=== PATIENT | male | born 1945 | race Caucasian/White ===

== ENCOUNTER 2019-10-14 08:14 | Emergency (ER) | payer OTHER ==
[~2019-10-14] VITALS: Ht 177.8 cm; Wt 81.7 kg
[2019-10-14] MEDS ORDERED: VALSARTAN-HCTZ1 EAC1 PO (08:24)
[2019-10-14] MEDS ORDERED: GLUCOPHAGE XR750 MG PO (08:24)
[2019-10-14 08:45] LABS: URINE BILIRUBIN NEGATIVE (Negative); URINE BLOOD NEGATIVE (Negative); URINE CLARITY CLEAR; URINE COLOR YELLOW; URINE GLUCOSE-RANDOM* 2+ (Negative); URINE KETONES NEGATIVE (Negative); URINE LEUKOCYTES-REFLEX NEGATIVE (Negative); URINE NITRITE-REFLEX NEGATIVE (Negative); URINE PROTEIN (DIPSTICK) NEGATIVE (Negative); URINE SPECIFIC GRAVITY <= 1.005 (1.005-1.035); URINE UROBILINOGEN 0.2 E.U./dl (0.2-1.0)
[2019-10-14 08:54] LABS: ANION GAP 10 mmol/L (7-16); BUN 13 mg/dL (7-18); CALCIUM 9.4 mg/dL (8.5-10.1); CHLORIDE 104 mmol/L (98-107); CO2 24 mmol/L (21-32); CREATININE 1.1 mg/dL (0.7-1.3); GLUCOSE 246 mg/dL (74-106); POTASSIUM 4.1 mmol/L (3.5-5.1); SODIUM 138 mmol/L (136-145)
[2019-10-14 09:04] LABS: ALBUMIN 3.8 g/dL (3.4-5.0); DIRECT BILIRUBIN 0.4 mg/dL (<0.1-0.2); SGOT 58 U/L (15-37); SGPT 73 U/L (30-65); TOTAL BILIRUBIN 1.6 mg/dL (0.2-1.0); TOTAL PROTEIN 7.4 g/dL (6.4-8.2); TROPONIN-I <0.06 ng/mL (<0.06)
[2019-10-14] MEDS ORDERED: XARELTO20 MG PO (12:06)
[2019-10-14] MEDS ORDERED: TENORMIN25 M1 PO (12:06)
[2019-10-14 12:19] VITALS: BP 101/77
[2019-10-14 13:11] LABS: ABSOLUTE NEUTROPHILS 7.3 thou/uL (1.4-8.2); BASOPHILS 0.5 % (0.0-2.0); EOSINOPHILS 0.5 % (0.0-3.0); HEMATOCRIT 49.2 % (42.0-52.0); HEMOGLOBIN 16.8 gm/dL (14.0-18.0); LYMPHOCYTES 13.7 % (24.0-44.0); MCHC 34.1 g/dL (28.0-37.0); MCV 96.7 fL (80.0-100.0); MONOCYTES 6.8 % (1.0-8.0); PLATELET COUNT 194 thou/uL (150-400); POLYS 78.5 % (36.0-66.0); RBC 5.08 mil/uL (4.50-6.00); RDW 13.9 % (10.5-14.5); WBC 9.3 thou/uL (4.0-11.0)
--- NOTE | 2019-10-14 13:50 | EKG ---
[facility] [place] [address] ELECTROCARDIOGRAM REPORT Name: TASH HAYNES Room #: DEP [facility]#: [id number] Admission: 10/14/19 Attend Phys: Discharge: 10/14/19 Date of : 41 Report #: [id number] THIS REPORT FOR: cc: Farhat Richard James A. DO Couchonnal, Luis F. 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
[2019-10-15] MEDS ORDERED: FISH OIL 1,0001 EAC9 PO (16:29)
[2019-10-15] MEDS ORDERED: ASA81BEC PO (16:29)
== END 2019-10-14 12:19 | disposition home or self-care (01) ==
LOC: ER 08:14
PROVIDERS: Emergency Medicine
DX: I48.0 Paroxysmal atrial fibrillation (principal); Z79.899 Other long term (current) drug therapy

== ENCOUNTER 2019-10-15 15:20 | Inpatient (IN) | payer OTHER ==
[~2019-10-15] VITALS: Ht 177.8 cm; Wt 83.9 kg
[~2019-10-15 15:20] MED LIST changes: -ASA81BEC PO; -FISH OIL 1,0001 EAC9 PO
[2019-10-15 15:41] VITALS: BP 115/93
[2019-10-15 15:56] LABS: ABSOLUTE NEUTROPHILS 9.1 thou/uL (1.4-8.2); BASOPHILS 0.4 % (0.0-2.0); EOSINOPHILS 0.2 % (0.0-3.0); HEMATOCRIT 52.9 % (42.0-52.0); HEMOGLOBIN 17.9 gm/dL (14.0-18.0); LYMPHOCYTES 18.2 % (24.0-44.0); MCH 32.8 pg (26.0-34.0); MCHC 33.8 g/dL (28.0-37.0); MCV 96.9 fL (80.0-100.0); MONOCYTES 8.1 % (1.0-8.0); PLATELET COUNT 216 thou/uL (150-400); POLYS 73.1 % (36.0-66.0); RBC 5.46 mil/uL (4.50-6.00); RDW 13.6 % (10.5-14.5); WBC 12.4 thou/uL (4.0-11.0)
[2019-10-15 16:03] LABS: ANION GAP 9 mmol/L (7-16); BUN 22 mg/dL (7-18); CALCIUM 9.9 mg/dL (8.5-10.1); CHLORIDE 102 mmol/L (98-107); CO2 26 mmol/L (21-32); CREATININE 1.2 mg/dL (0.7-1.3); GLUCOSE 163 mg/dL (74-106); POTASSIUM 5.3 mmol/L (3.5-5.1); SODIUM 137 mmol/L (136-145)
[2019-10-15 16:09] LABS: APTT 25.9 Seconds (24.5-32.8); INR 1.2; PROTIME 12.1 Seconds (9.3-11.4)
[2019-10-15 16:14] LABS: ALBUMIN 4.2 g/dL (3.4-5.0); MAGNESIUM 2.3 mg/dL (1.8-2.4); SGOT 82 U/L (15-37); SGPT 112 U/L (30-65); TOTAL BILIRUBIN 2.1 mg/dL (0.2-1.0); TOTAL PROTEIN 8.1 g/dL (6.4-8.2); TROPONIN-I <0.06 ng/mL (<0.06)
[2019-10-15] MEDS ORDERED: FISH OIL 1,0001 EAC9 PO (16:29)
[2019-10-15] MEDS ORDERED: ASA81BEC PO (16:29)
[2019-10-15 17:06] VITALS: BP 115/93
--- NOTE | 2019-10-15 17:22 | NUR ---
Report attempted to CCU. Placed on hold for multiple minutes without any picking up. Will call back.
[2019-10-15 17:44] VITALS: BP 124/86
[2019-10-15 18:05] LABS: CHOLESTEROL 135 mg/dL (<200); HDL CHOLESTEROL 37 mg/dL (>40); LDL CHOLESTEROL 81 mg/dL (<100); TC:HDL 3.6 Ratio (Not establshd); TRIGLYCERIDE 89 mg/dL (<150); VLDL 18 mg/dL (<40)
[2019-10-15 19:34] VITALS: BP 101/76
[2019-10-15 23:00] VITALS: BP 99/65
[2019-10-16 00:02] LABS: AMP/METHAMP Negative (Negative); BARBITURATES Negative (Negative); BENZODIAZEPINES Negative (Negative); COCAINE Negative (Negative); METHADONE Negative (Negative); OPIATES Negative (Negative); PCP Negative (Negative)
--- NOTE | 2019-10-16 00:14 | NUR ---
1900 ARRIVED FROM ER PER WHEELCHAIR. CHANGED TO R/O BRIANNE. YAM CURER NOTIFIED. INFORMED PATIENT. DOOR CLOSED AND GETTING ISOLATION EQUIPMENT. 2029 REPORT GIVEN TO TYRELL NAVARRO ON 3W. AWAITING ROOM TO BE READY. 2249 TRANSFERED TO 349 PER BED. TELEMETRY SHOWS AFIB, PVC'S 90'S. DOES INCREASE TO 120'S WHEN UP IN ROOM.
[2019-10-16 02:06] LABS: GLYCOHEMOGLOBIN (HGB A1C) 7.2 % (4.8-5.6)
[2019-10-16 04:55] VITALS: BP 114/84
[2019-10-16 06:20] LABS: HEMATOCRIT 47.9 % (42.0-52.0); HEMOGLOBIN 16.6 gm/dL (14.0-18.0); MCHC 34.6 g/dL (28.0-37.0); MCV 98.2 fL (80.0-100.0); RBC 4.88 mil/uL (4.50-6.00); RDW 14.3 % (10.5-14.5); WBC 11.1 thou/uL (4.0-11.0)
[2019-10-16 06:48] LABS: CREATININE 1.4 mg/dL (0.7-1.3)
[2019-10-16 06:50] LABS: POTASSIUM 3.7 mmol/L (3.5-5.1)
[2019-10-16 07:44] VITALS: BP 101/67
--- NOTE | 2019-10-16 08:06 | NUR ---
COVID SWAB SENT LAST NIGHT, RESULTS PENDING. PT HAS DENIED ANY CHILLS OR SWEATS. DOES REPORT HE HAS FELT SOME FLUTTERING SENSATION TO HIS HEART. DID HAVE ONE TACHYCARDIC WIDE COMPLEX BURST OVERNIGHT AT APPROX 0351 HRS, APPROX 20 BEATS THAT SPONTANEOUSLY RETURNED TO AFIB.
--- NOTE | 2019-10-16 09:17 | EKG ---
[facility] [place] [address] ELECTROCARDIOGRAM REPORT Name: TASH HAYNES Room #: 349-I ADM IN M.R.#: [id number] Admission: 10/15/19 Attend Phys: Coleen Davenport MD Discharge: Date of : 41 Report #: [id number] THIS REPORT FOR: cc: Farhat Richard James A. DO Lundgren, Craig H. 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: PORFIRIO : 1945 Requested By: Jeramie Gustafson Order Number: [id number] MD: Rene Heredia Measurements Intervals [place] Rate: 90 P: VT: QRS: 6 QRSD: 96 T: 132 QT: 399 QTc: 489 Interpretive Statements Atrial fibrillation Ventricular premature complex Anterior infarct, old Nonspecific T abnormalities, lateral leads Compared to ECG 10/14/2019 08:24:57 No significant change was found Electronically Signed On 10-16-2019 9:17:11 CDT by Rene Heredia [email or web address] <ELECTRONICALLY SIGNED> By: Rene Heredia MD, [facility] 10/16/19 0917 1529 1529 Rene Heredia MD, FAC /EPI
[2019-10-16 11:45] VITALS: BP 110/59
--- NOTE | 2019-10-16 11:59 | 2DMMODE ---
[facility] [address] [place] [address] 2 D/M-MODE ECHOCARDIOGRAM Name: HAYNESTASH C Room #: 349-I ADM IN ..#: [id number] Admission: 10/15/19 Attend Phys: Coleen Davenport MD Discharge: Date of : 43 Report #: [id number] THIS REPORT FOR: cc: Farhat Richard James A. DO Lammoglia, Francisco J. MD ~ APPROVED REPORT Study performed: 10/16/2019 11:22:01 EXAM: Comprehensive 2D, Doppler, and color-flow Echocardiogram Patient Location: Bedside Room #: 349 Status: routine BSA: 2.04 HR: 108 bpm BP: 101/67 mmHg Rhythm: Atrial Fibrillation Other Information Study Quality: Good/Patient in COVID isolation. Indications Congestive Heart Failure Atrial Fibrillation Dyspnea Chest Pain 2D Dimensions IVSd: 10.06 (7-11mm) LVOT Diam: 21.44 (18-24mm) LVDd: 56.61 mm PWd: 8.62 (7-11mm) Ascending Ao: 36.18 (22-36mm) LVDs: 45.76 (25-40mm) Aortic Root: 30.72 mm Aortic Valve AoV Peak Terry.: 2.17 m/s AO Peak Gr.: 19.41 mmHg LVOT Max P.72 mmHg AO Mean Gr.: 13.28 mmHg AO V2 Mean: 1.75 m/s LVOT Max V: 0.65 m/s AO V2 VTI: 40.43 cm ALYSIA Vmax: 1.08 cm2 [facility] [address] [place] [address] 2 D/M-MODE ECHOCARDIOGRAM Name: TASH HAYNES Juanita Room #: 349-I [facility] IN [facility]#: [id number] Admission: 10/15/19 Attend Phys: Coleen Davenport MD Discharge: Date of : 43 Report #: [id number] Tricuspid Valve TR Peak Terry.: 2.84 m/s RAP Estimate: 15.00 mmHg TR Peak Gr.: 32.43 mmHg PA Pressure: 47.00 mmHg Left Ventricle The left ventricle is normal size. There is normal left ventricular wall thickness. Left ventricular systolic function is moderate to severely decreased. LVEF is 30%. This study is not technically sufficient to allow evaluation of the LV diastolic function due to atrial fibrillation. Right Ventricle The right ventricle is normal size. Right ventricle is mild to moderately hypokinetic. Atria Left atrium is dilated. Right atrium is dilated. Aortic Valve Aortic valve is heavily calcified. Trace aortic regurgitation. Moderate to severe aortic stenosis. ALYSIA by continuity equation is 1.1cm2. Mitral Valve Mitral valve leaflets are thickened. Moderate mitral annular calcification. Severe mitral regurgitation. Tricuspid Valve The tricuspid valve is normal in structure. Mild to moderate tricuspid regurgitation. Estimated PAP is 40-45mmHg. Pulmonic Valve Pulmonic valve is not well visualized. Trace pulmonic regurgitation. Great Vessels The aortic root is normal in size. The ascending aorta is normal in size. IVC is dilated and collapses <50% with inspiration. Pericardium There is no pericardial effusion. Left pleural effusion noted. <Conclusion> [facility] [address] [place] [address] 2 D/M-MODE ECHOCARDIOGRAM Name: TASH HAYNES Juanita Room #: 349-I [facility] IN [facility]#: [id number] Admission: 10/15/19 Attend Phys: Coleen Davenport MD Discharge: Date of : 41 Report #: [id number] The left ventricle is normal size. LVEF is 30%. Left atrium is dilated. Right atrium is dilated. Aortic valve is heavily calcified. Trace aortic regurgitation. Moderate to severe aortic stenosis. ALYSIA by continuity equation is 1.1cm2. Mitral valve leaflets are thickened. Moderate mitral annular calcification. Severe mitral regurgitation. The tricuspid valve is normal in structure. Mild to moderate tricuspid regurgitation. Estimated PAP is 40-45mmHg. Pulmonic valve is not well visualized. Trace pulmonic regurgitation. There is no pericardial effusion. Left pleural effusion noted. <ELECTRONICALLY SIGNED> By: Srinath Guerrero MD 10/16/19 1159 1159 1159 Srinath Guerrero MD /INF
--- NOTE | 2019-10-16 12:41 | NUR ---
INITIAL ASSESSMENT: SW reviewed chart and spoke with nursing. Pt was admitted from home due to new onset Afib with RVT. Pt with hx of CHF/HTN. Pt placed in Enhanced Isolation to r/o COVID-19. Pt's test is negative. Pt to transfer to CCU when a bed is available. SW spoke with pt via phone. Introduced role of SW. Pt is alert/orientated x 4. Pt states he lives alone. Prior to admission, pt was independent with ADLs. Does not use any DME. No hx of HH services or post-acute placement. Pt's PCP is Dr. Farhat Richard. Plan is for pt to discharge home when medically stable. No discharge needs identified at this time. SW is available to assist should needs arise.
--- NOTE | 2019-10-16 15:36 | NUR ---
PT TRANSFERRED TO ROOM 206. TELE APPLIED, VSS.
[2019-10-16 15:45] VITALS: BP 105/75
--- NOTE | 2019-10-16 17:35 | NUR ---
ASSUMED CARE THIS AM. PATIENT AWAKE AND ALERT. SHORTNESS OF BREATH NOTED AT REST AND INCREASED SHORTNESS OF BREATH WITH ANY ACTIVITY. DISCUSSED PLAN OF CARE WITH PATIENT. COVID TEST CAME BACK NEGATIVE AND ORDERS RECEIVED TO DISCONTINUE ENHANCED PRECAUTIONS. HEART RATE STABLE IN THE 80-90'S. CONTINUED AFIB ON THE MONITOR. LARGE U/O TODAY. UP AD AMANDA IN ROOM. PATIENT WAS TRANSFERRED TO ROOM 206.
--- NOTE | 2019-10-16 18:27 | NUR ---
PT UP AD AMANDA IN ROOM. DENIES ANY NEEDS AT THIS TIME.
[2019-10-16 19:10] LABS: URINE BILIRUBIN NEGATIVE (Negative); URINE BLOOD NEGATIVE (Negative); URINE CLARITY CLEAR; URINE COLOR YELLOW; URINE GLUCOSE-RANDOM* NEGATIVE (Negative); URINE KETONES 1+ (Negative); URINE LEUKOCYTES-REFLEX NEGATIVE (Negative); URINE NITRITE-REFLEX NEGATIVE (Negative); URINE PROTEIN (DIPSTICK) TRACE (Negative); URINE SPECIFIC GRAVITY 1.025 (1.005-1.035); URINE UROBILINOGEN 0.2 E.U./dl (0.2-1.0)
[2019-10-16 19:50] VITALS: BP 84/58
[2019-10-17] VITALS: BP 94/65
[2019-10-17 03:30] VITALS: BP 99/73
--- NOTE | 2019-10-17 04:54 | NUR ---
Assumed pt care at 1900. At the beginning of the shift, pt is alert and oriented. No sign of distress noted in pt. Denies any pain but does get short of breath upon exertion. Pt is ambulatory. Assessment completed and documented. Scheduled meds administered to pt. Pt complains about not been able to sleep and uncomfortable and nauseated at midnight. Ambien and zofran administered. Pt went to sleep. Duriing the night, pt had two episodes of confusion and hallucination to where took out his IV and heart monitor leads and pt didnt know where he was. He was disoriented to place. Pt is re-oriented. Fluids administered due to hypotension, pt is placed on CPOX due to increased shortness of breath with activity. Pt continue to have decreased in O2 saturation during the night. Pt is placed on 2L NC to help with oxygen saturation level. Continue to monitor pt through the night. No further needs at this time.
[2019-10-17 06:39] LABS: BASOPHILS 0.7 % (0.0-2.0); EOSINOPHILS 1.3 % (0.0-3.0); HEMATOCRIT 44.8 % (42.0-52.0); HEMOGLOBIN 15.3 gm/dL (14.0-18.0); LYMPHOCYTES 21.8 % (24.0-44.0); MCH 33.1 pg (26.0-34.0); MCHC 34.1 g/dL (28.0-37.0); MCV 97.1 fL (80.0-100.0); MONOCYTES 7.8 % (1.0-8.0); PLATELET COUNT 177 thou/uL (150-400); POLYS 68.4 % (36.0-66.0); RBC 4.62 mil/uL (4.50-6.00); RDW 14.2 % (10.5-14.5); WBC 8.8 thou/uL (4.0-11.0)
[2019-10-17 06:54] LABS: CALCIUM 8.9 mg/dL (8.5-10.1); CREATININE 1.2 mg/dL (0.7-1.3); POTASSIUM 3.9 mmol/L (3.5-5.1)
[2019-10-17 08:00] VITALS: BP 100/78
[2019-10-17 11:30] VITALS: BP 81/61
[2019-10-17 15:35] VITALS: BP 88/65
--- NOTE | 2019-10-17 17:25 | NUR ---
ASSESSMENT CHARTED. PT ALERT AND ORIENTED. HAD LOW BP THIS SHIFT. SCHEDULED COREG HELD FOR LOW BP. DR VELA AWARE. ORDERS GIVEN TO PUT PT ON STRICT BED REST. AFIB ON THE MONITOR. WILL CONTINUE TO MONITOR.
[2019-10-17 19:20] VITALS: BP 93/71
[2019-10-18 03:55] VITALS: BP 92/66
--- NOTE | 2019-10-18 05:06 | NUR ---
Assumed pt care at 1900. Pt is alert and oriented. No sign of distress noted in pt. Pt is stable through the night. Pt is ambulatory. Assesment completed and documented. Scheduled meds administered to pt. Pt is stable through the night. No acute event. Continue to monitor. No further needs at this time.
[2019-10-18 08:10] VITALS: BP 91/74
[2019-10-18 12:00] VITALS: BP 82/57
[2019-10-18 16:05] VITALS: BP 96/69
--- NOTE | 2019-10-18 17:39 | NUR ---
ASSUMED CARE PT SHIFT CHANGE. ASSESSMENT CHARTED. MEDS GIVEN PER MAY. PT ALERT AND ORIENTED. VSS. XRAY DONE TODAY-REFER TO RESULTS. PT WEANED OFF O2. SATS WNL. DENIES SOB. UP TO CHAIR TOLERATING WELL. DAUGHTER IN ROOM THROUGHOUT DAY. POC FOR PT TO HAVE CARDILOGY WORK UP. PT CURRENTLY EATING DINNER WITH DAUGHTER IN ROOM. DENIES NEEDS. WILL CONT TO MONITOR. WILL PASS ON REPORT TO TONI NAVARRO.
[2019-10-18 20:00] VITALS: BP 70/44
[2019-10-19] VITALS (15 sets, daily range): BP systolic 97–116; BP diastolic 63–89
--- NOTE | 2019-10-19 02:08 | NUR ---
PT IS PLEASANT. ALERT AND ORIENTED X4. LUNGS ARE CLEAR ON ROOM AIR. NPO SINCE MIDNIGHT. FOR CARDIOLOGY TO EVALUATED AND MAKE A PLAN OF CARE FOR PT AT THIS TIME. VOIDS PER URINAL AT BEDSIDE. PT RESTING THIS EVENING. COVID SCREEN NEGATIVE AT THIS TIME. WILL CONTINUE ONGOING NURSING CARE PLAN AND PT NEEDS AT THIS TIME. DENIES ANY PAIN ISSUES. CALL LIGHT WITHIN REACH.
[2019-10-19 08:19] LABS: CALCIUM 8.8 mg/dL (8.5-10.1); MAGNESIUM 2.3 mg/dL (1.8-2.4)
[2019-10-19 12:06] LABS: HEMOGLOBIN 15.1 gm/dL (14.0-18.0); MCHC 34.3 g/dL (28.0-37.0); MCV 96.1 fL (80.0-100.0); RBC 4.58 mil/uL (4.50-6.00)
[2019-10-19 12:16] LABS: INR 1.1; PROTIME 11.4 Seconds (9.3-11.4)
[2019-10-19 12:22] LABS: POTASSIUM 4.1 mmol/L (3.5-5.1)
--- NOTE | 2019-10-19 14:28 | EKG ---
[facility] [place] [address] ELECTROCARDIOGRAM REPORT Name: TASH HAYNES Room #: 206-P ADM IN M.R.#: [id number] Admission: 10/15/19 Attend Phys: Coleen Davenport MD Discharge: Date of : 41 Report #: [id number] THIS REPORT FOR: cc: Farhat Richard James A. DO Couchonnal, Luis F. MD ~ THIS REPORT FOR: //name// [facility] Test Date: 2019-10-19 Test Time: 12:01:11 Pat Name: TASH HAYNES Department: Room: 206 P Gender: M Prep Person: GAMALIEL : 1945 Requested By: Ani Raza Order Number: [id number] MD: Aristides Cho Measurements Intervals Lane Rate: 109 P: GA: QRS: 10 QRSD: 93 T: QT: 350 QTc: 472 Interpretive Statements Atrial fibrillation Paired ventricular premature complexes Low voltage, extremity leads Nonspecific T abnormalities, lateral leads Baseline wander in lead(s) V1 Electronically Signed On 10-19-2019 14:28:34 CDT by Aristides Cho [email or web address] <ELECTRONICALLY SIGNED> By: Aristides Cho MD 10/19/19 1428 1201 1201 Aristides Cho MD /EPI
[2019-10-20] VITALS (8 sets, daily range): BP systolic 94–151; BP diastolic 62–98
--- NOTE | 2019-10-20 04:57 | NUR ---
ASSUMED PT CARE AT 1900, PT IS AWAKE, ALERT AND SEEMED CONFUSED, PT WAS FOUND SLEEPING IN BED WITH HEAD FACING THE FOOT OF THE BED, PT REFUSED ASSESSMENT; PT AFIB AND NOTED SUSTAINED TACHYCARDIA UPTO 160, CARDIALOGY NOTIFIED, NEW ORDERS RECEIVED, CARDIZEM STARTED, PT IS BEEN RUNNING NON SINUS TO SINUS VTACH ON THE MONITOR, NEUROLOGY CONSULTED, DENIES PAIN OR SOB, PT BACK TO HIS BASELINE AND DOING OK, SLEPT ON THE CHAIR NO DISTRESS NOTED AT THIS TIME, WILL CONTINUE TO MONITOR, WILL PASS ON REPORT
[2019-10-20 05:44] LABS: ABSOLUTE NEUTROPHILS 5.4 thou/uL (1.4-8.2); BASOPHILS 0.3 % (0.0-2.0); EOSINOPHILS 1.2 % (0.0-3.0); HEMATOCRIT 47.7 % (42.0-52.0); HEMOGLOBIN 16.1 gm/dL (14.0-18.0); LYMPHOCYTES 19.9 % (24.0-44.0); MCH 32.6 pg (26.0-34.0); MCHC 33.7 g/dL (28.0-37.0); MCV 96.8 fL (80.0-100.0); MONOCYTES 8.2 % (1.0-8.0); PLATELET COUNT 178 thou/uL (150-400); POLYS 70.4 % (36.0-66.0); RBC 4.93 mil/uL (4.50-6.00); RDW 14.4 % (10.5-14.5); WBC 7.6 thou/uL (4.0-11.0)
[2019-10-20 06:04] LABS: CALCIUM 9.3 mg/dL (8.5-10.1); CREATININE 1.1 mg/dL (0.7-1.3); POTASSIUM 3.9 mmol/L (3.5-5.1)
[2019-10-20 06:11] LABS: MAGNESIUM 2.3 mg/dL (1.8-2.4); PHOSPHORUS 3.2 mg/dL (2.5-4.9)
--- NOTE | 2019-10-20 17:54 | NUR ---
ASSESSMENT CHARTED. PT ALERT AND ORIENTED. AFIB ON THE MONITOR. SEEN BY STEEL ERECTING PUSHER NEW ORDERS NOTED. UP IN THE CHAIR MOST OF THE SHIFT. DENIED HAVING PAIN OR DISCOMFORT. WILL CONTINUE TO MONITOR.
[2019-10-21] VITALS (7 sets, daily range): BP systolic 95–136; BP diastolic 64–92
--- NOTE | 2019-10-21 05:09 | NUR ---
SLEPT MOST OF SHIFT UP IN CHAIR. DENIES PRESENT COMPLAINTS OF SHORTNESS OF AIR. PROGRESSING TOWARDS DISCHARGE GOALS SLOWLY. WORKING ON GOALS AND PLAN OF CARE FOR NOC. UP AD AMANDA IN ROOM WITH STEADY GAIT. CONTINUE TO ASSES.
[2019-10-21 11:27] LABS: CALCIUM 8.2 mg/dL (8.5-10.1); CREATININE 1.1 mg/dL (0.7-1.3); MAGNESIUM 2.1 mg/dL (1.8-2.4); POTASSIUM 4.5 mmol/L (3.5-5.1)
--- NOTE | 2019-10-21 15:45 | NUR ---
DISCHARGING TO HOME. TELE AND SALINE LOCK DISCONTINUED. HIS TACHYCARDIA HAS PERSISTED WITH ANY ACTIVITY WHILE ON DIGOXIN.
--- NOTE | 2019-10-21 19:57 | HC ---
[facility] [place] [address] CONSULTATION Name: TASH HAYNES Room #: 206-P ADM IN M.R.#: [id number] Admission: 10/15/19 Attend Phys: Coleen Davenport MD Discharge: Date of : 43 Report #: [id number] THIS REPORT FOR: cc: Farhat Richard,Gerald Paniagua MD ~ CC: Farhat Davenport DATE OF SERVICE: 10/20/2019 HISTORY OF PRESENT ILLNESS: This is a 74-year-old male patient for whom a stat consult was requested by the nurses for altered mental status. I came and saw the patient. There is a difference between the version of the nurse looking after that the patient and the patient himself. He gives a history that he did not like the bed and he just got angry and took it on the nurse. Nurse initially thought he was confused, but then he also thought that he was probably angry, but I do not get a good history because of this conflicting version. Anyway, he returned back to the baseline this morning. He does have multiple risk factors for altered mental status, which would be summarized below. REVIEW OF SYSTEMS: Indicate that he has atrial fibrillation. He underwent a cardiac catheterization. He has a congestive heart failure. He denies any prior history of strokes. He was on anticoagulation, not sure how his compliance has been. PAST MEDICAL HISTORY: Negative for any stroke. FAMILY HISTORY: Noncontributory. SOCIAL HISTORY: He does drink alcohol. He does have a history of smoking. PHYSICAL EXAMINATION: He is alert. He is responsive to me. He is able to follow simple command. He knows what hospital he is in. He knew the president. He got the date right. Cranial nerve examination 2-12 looks unremarkable. Neuromuscular examination is symmetrical. There is no cerebellar sign. I could not look at the fundus. He does have a history of atrial fibrillation. He does not appear to be in respiratory difficulty. Blood pressure is 124/75 and pulse is 114. LABORATORY DATA: His labs were reviewed. His white count is 7.6. He did not have any imaging study of the brain. IMPRESSION: There is a different version between the nurses and the patient what happened, but he is very predisposed to have any intracranial problem both because of his atrial fibrillation as well as he is being on anticoagulation. I [facility] [address] [place] [address] CONSULTATION Name: TASH HAYNES Juanita Room #: 206-P [facility] IN [facility]#: [id number] Admission: 10/15/19 Attend Phys: Coleen Davenport MD Discharge: Date of : 43 Report #: [id number] do a [address] just to make sure, if that is okay, mainly need to be watched. Thank you very much for this referral and we will check the CT, but until that shows any significant abnormalities, I do not think anything further need to be done. <ELECTRONICALLY SIGNED> By: Gerald Viramontes MD 10/21/19 1957 0924 Gerald Viramontes MD /nt
[2019-10-22 04:48] VITALS: BP 120/91
--- NOTE | 2019-10-22 05:53 | NUR ---
RHYTHM HAS BEEN UP TO THE 120s WITH ACTIVITY. PATIENT IS ANXIOUS TO DISCHARGE TO HOME. HE ROTATES BETWEEN THE BED AND CHAIR FOR COMFORT. RIGHT GROIN DRESSING WAS REMOVED AND SITE IS WELL-APPROXIMATED WITH NO DRAINAGE OR REDNESS. PATIENT IS COOPERATIVE, AOX4, AND IS UP AD AMANDA.
[2019-10-22 07:47] VITALS: BP 117/86
[2019-10-22 11:10] VITALS: BP 126/78
[2019-10-22] MEDS ORDERED: ELIQUIS5 MG PO (12:35)
[2019-10-22] MEDS ORDERED: DIGOXIN250 MCG PO (12:35)
[2019-10-22] MEDS ORDERED: COREG6.25 MG PO (12:36)
[2019-10-22 13:29] VITALS: BP 126/78
--- NOTE | 2019-10-22 13:37 | NUR ---
PT CARE ASSUMED APPROX 0700. ASSESSMENTS CHARTED. PT DENIES PAIN AND SOA. VSS. UP WITH STEADY GAIT. DISCHARGED AT THIS TIME. EDUCATION/PAPERWORK REVIEWED WITH PT BY THIS NURSE. PT DENIES QUESTIONS OR CONCERNS REGARDING POST HOSPITAL CARES AND F/U. IV OUT, TELE OFF. WILL ESCORT PT OUT TIMELY.
--- NOTE | 2019-10-22 13:46 | NUR ---
Nutrition: Pt seen for LOS. Admit with JESSICA mitchell. Pt very upset during RD visit. Wants to discharge. Had been eating 75-100% of meals but noticed little of lunch consumed. States he is tired of food. Offered to help him order meals but he refused and stating he is aware of alternative menu. Pt's only focus is to D/C. Relayed to nsg. Unable to address any education needs or weight hx. Pt appeared well nourished. Place at low risk for now.
--- NOTE | 2019-10-30 12:01 | CATHLAB ---
[facility] [place] [address] INVASIVE PROCEDURE REPORT Name: TASH HAYNES Juanita Room #: 206-P [facility] IN .R.#: [id number] Admission: 10/15/19 Attend Phys: Coleen Davenport MD Discharge: 10/22/19 Date of : 43 Report #: [id number] THIS REPORT FOR: cc: Farhat Richard James A. DO Lammoglia, Francisco J. MD ~ APPROVED REPORT Study performed: 10/19/2019 15:55:09 Patient Details Patient Status: In-Patient Room #: The patient is a 74 year-old male Event Personnel Srinath Guerrero Call Center Specialist, John Michaud RN, Alondra Victoria RTR, Marisa Medrano Alison RT(R)() Monitor Procedures Performed Art Access - R femoral artery* , Left Heart Cath w/or w/o Coronaries [id number] [facility] Hemostasis with Manual pressure 29985 Initial Mod Sed Same Phys/QHP Gr5y [id number] 50526 Mod Sed Same Phys/QHP Ea [id number] supervision conscious sedation Indication Positive stress test, Chest pain Procedure Narrative The Right Groin^ was infiltrated with 1% Lidocaine subcutaneous anesthesia. A PINNACLE 4FR Sheath #[id number] sheath was inserted into the RFA 1^. Coronary angiography was performed using coronary diagnostic catheters. The right coronary system was accessed and visualized with a JR4 catheter. The left coronary system was accessed and visualized with a 4FR JL 5.0 #[id number] catheter. The left ventricle was accessed and visualized with a PIGTAIL catheter. Hemostasis was obtained with manual pressure following sheath removal without any complications. The patient tolerated the procedure well and there were no complications associated with the procedure. There was no hematoma. Intraoperative Conscious Sedation Versed [address] [address] INVASIVE PROCEDURE REPORT Name: TASH HAYNES Room #: 206-P [facility] IN ..#: [id number] Admission: 10/15/19 Attend Phys: Coleen Davenport MD Discharge: 10/22/19 Date of : 43 Report #: [id number] Fluoro Time: 2.90 minutes Dose: DAP 7803.00 cGycm2 1221 mGy Contrast Type and Amount: Omnipaque 42 ml Coronary Angiography The patient's coronary anatomy is co- dominant. Diagnostic Cath Left Main Large-caliber vessel normal origin bifurcates left anterior descending left circumflex. It is moderate in length and with only mild irregularities noted LAD Moderate caliber vessel coursing in the anterior interventricular sulcus rapidly tapering to a small caliber vessel at the apex or terminates as a bifurcating vessel. It gives rise to moderate first diagonal branch which arises before the first septal counseling program leader. This vessel coursing on the anterolateral wall towards the apex without high-grade lesions noted. There is evidence of extensive epicardial coronary calcium along the proximal left anterior descending Diagonal 1 Moderate caliber vessel with luminal irregularities noted appear to course on the anterolateral wall free of high-grade disease Diagonal 2 Small caliber vessel without high-grade lesions noted Circumflex Large-caliber dominant vessel gives us an early marginal branch with and courses in the AV groove posteriorly giving rise to several posterior wall branch and a posterior descending artery is noted. OM1 Moderate caliber vessel without high-grade lesions noted OM2 Small caliber vessel without high-grade lesions L PDA Small caliber vessel coursing in the posterior interventricular sulcus free of high-grade disease Right Coronary Moderate nondominant vessel preceding the AV groove to the acute margin where bifurcates into a small nondominant ventricular branch there is mild irregularities noted R PDA Small caliber and significant vessel Left Ventriculography Left Ventriculography was not performed. Hemodynamics The aortic pressure is 107/72 mmHg with a mean of 87 mmHg. The left ventricular pressure is 117/12 mmHg with a mean of mmHg. The left ventricular end diastolic pressure is 27 mmHg. [facility] [address] [place] [address] INVASIVE PROCEDURE REPORT Name: TASH HAYNES Room #: 206-P [facility] IN M.R.#: [id number] Admission: 10/15/19 Attend Phys: Coleen Davenport MD Discharge: 10/22/19 Date of : 41 Report #: [id number] Conclusion 1. Essentially normal coronary arteries with only minimal irregularities present 2. Normal hemodynamics Recommendations Cardiac Risk Reduction Program Medical Therapy <ELECTRONICALLY SIGNED> By: Srinath Guerrero MD 10/30/19 1201 120 00 Srinath Guerrero MD /INF
== END 2019-10-22 15:54 | disposition home or self-care (01) | DRG 286 ==
LOC: ER 15:20 → EROBS 17:21 → 2N 17:21 → 3W 17:21 → 2N 18:24 → 3W 22:49 → 2N 10-16 14:57
PROVIDERS: Emergency Medicine; Internal Medicine; Nurse Practitioner; ADMIT Internal Medicine; ATTEND Internal Medicine
PROC: 4A023N7 Measurement of Cardiac Sampling and Pressure, Left Heart, Percutaneous Approach (ICD-10-PCS; principal; 2019-10-19)
PROC: B2111ZZ Fluoroscopy of Multiple Coronary Arteries using Low Osmolar Contrast (ICD-10-PCS; principal; 2019-10-19)
DX: I11.0 Hypertensive heart disease with heart failure (principal); I50.21 Acute systolic (congestive) heart failure; J98.11 Atelectasis; N17.9 Acute kidney failure, unspecified; I42.9 Cardiomyopathy, unspecified; I48.91 Unspecified atrial fibrillation; F17.210 Nicotine dependence, cigarettes, uncomplicated; Z20.828 Contact with and (suspected) exposure to other viral communicable diseases; I08.0 Rheumatic disorders of both mitral and aortic valves; E11.9 Type 2 diabetes mellitus without complications; Z71.6 Tobacco abuse counseling; Z82.49 Family history of ischemic heart disease and other diseases of the circulatory system; Z79.899 Other long term (current) drug therapy
CPT/HCPCS: 10081; 10879

== ENCOUNTER → 2019-10-15 | Outpatient (CLI) | payer OTHER ==
[~2019-10-15] MED LIST: ASA81BEC PO; FISH OIL 1,0001 EAC9 PO; GLUCOPHAGE XR750 MG PO; TENORMIN25 M1 PO; VALSARTAN-HCTZ1 EAC1 PO; XARELTO20 MG PO
== END ==
LOC: SJCVC 12:54
PROVIDERS: ATTEND Internal Medicine
DX: R06.00 Dyspnea, unspecified (principal); I48.91 Unspecified atrial fibrillation; E11.9 Type 2 diabetes mellitus without complications; I10 Essential (primary) hypertension; F17.290 Nicotine dependence, other tobacco product, uncomplicated

== ENCOUNTER 2019-11-24 12:07 | Inpatient (IN) | payer OTHER ==
[~2019-11-24] VITALS: Ht 177.8 cm; Wt 82.3 kg
[~2019-11-24 12:07] MED LIST changes: +ASA81BEC PO; +COREG6.25 MG PO; +DIGOXIN250 MCG PO; +ELIQUIS5 MG PO; +FISH OIL 1,0001 EAC9 PO
[2019-11-24 12:17] VITALS: BP 110/71
[2019-11-24 14:01] LABS: ABSOLUTE NEUTROPHILS 5.2 thou/uL (1.4-8.2); BASOPHILS 0.5 % (0.0-2.0); EOSINOPHILS 0.5 % (0.0-3.0); HEMATOCRIT 48.1 % (42.0-52.0); HEMOGLOBIN 16.3 gm/dL (14.0-18.0); LYMPHOCYTES 20.7 % (24.0-44.0); MONOCYTES 7.9 % (1.0-8.0); PLATELET COUNT 174 thou/uL (150-400); POLYS 70.4 % (36.0-66.0); RBC 4.96 mil/uL (4.50-6.00); RDW 14.6 % (10.5-14.5); WBC 7.3 thou/uL (4.0-11.0)
[2019-11-24 14:21] LABS: CALCIUM 8.8 mg/dL (8.5-10.1); CREATININE 1.1 mg/dL (0.7-1.3); POTASSIUM 4.3 mmol/L (3.5-5.1)
--- NOTE | 2019-11-24 14:47 | EKG ---
[facility] [place] [address] ELECTROCARDIOGRAM REPORT Name: TASH HAYNES Room #: [facility]#: [id number] Admission: 11/24/19 Attend Phys: Discharge: Date of : 41 Report #: [id number] THIS REPORT FOR: cc: Farhat Richard James A. DO Lundgren, Craig H. MD 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 Operator: : 1945 Requested By: Brian Perez Order Number: [id number] MD: Rene Heredia Measurements Intervals [place] Rate: 82 P: [place]: QRS: 6 QRSD: 91 T: 224 QT: 401 QTc: 469 Interpretive Statements Atrial fibrillation Anteroseptal infarct, old Nonspecific T abnormalities, lateral leads Baseline wander in lead(s) I,II,aVR,aVF,V1,V2,V3,V5,V6 Compared to ECG 10/19/2019 12:01:11 Ventricular ectopy is less frequent Electronically Signed On 11-24-2019 14:47:44 CDT by Rene Heredia [email or web address] <ELECTRONICALLY SIGNED> By: Rene Heredia MD, [facility] 11/24/19 1447 1405 1405 Rene Heredia MD, [facility] /EPI
[2019-11-24 17:50] LABS: URINE BILIRUBIN NEGATIVE (Negative); URINE BLOOD NEGATIVE (Negative); URINE CLARITY CLEAR; URINE COLOR YELLOW; URINE GLUCOSE-RANDOM* NEGATIVE (Negative); URINE KETONES NEGATIVE (Negative); URINE LEUKOCYTES-REFLEX NEGATIVE (Negative); URINE NITRITE-REFLEX NEGATIVE (Negative); URINE PROTEIN (DIPSTICK) NEGATIVE (Negative); URINE UROBILINOGEN 0.2 E.U./dl (0.2-1.0)
[2019-11-24 19:12] VITALS: BP 126/93
--- NOTE | 2019-11-24 19:30 | NUR ---
WAITING ON HOLD FOR SEVERAL MINUTES WAITING TO GIVE REPORT, CALLED BACK TO GIVE REPORT AND WAS TOLD NURSE IS GETTING REPORT AND WILL HAVE TO CALL BACK
[2019-11-24 19:43] VITALS: BP 106/79
[2019-11-24 20:10] VITALS: BP 106/75
[2019-11-25 00:01] VITALS: BP 125/88
--- NOTE | 2019-11-25 01:08 | NUR ---
ADMITED TO FLOOR FROM CART FROM ER AT 1950. ASSISTED TO BED. GAIT SLOW AND STEADY. DENIES COMPLAINTS OF PAIN. HAS SHORTNESS OF AIR WITH REST AND ACTIVITY BUT O2 SAT 95% ON RA. ADMISSION PROCESS COMPLETED. ORDERS IMPLIMENTED. ORIENTED TO ROOM AND FLOOR POLICIES. CONTINUE TO ASSES CLOSELY.
[2019-11-25 04:13] LABS: HEMATOCRIT 46.1 % (42.0-52.0); HEMOGLOBIN 15.7 gm/dL (14.0-18.0); MCH 32.9 pg (26.0-34.0); MCHC 33.9 g/dL (28.0-37.0); MCV 96.8 fL (80.0-100.0); RBC 4.76 mil/uL (4.50-6.00); RDW 14.8 % (10.5-14.5); WBC 7.9 thou/uL (4.0-11.0)
[2019-11-25 04:30] VITALS: BP 117/74
[2019-11-25 04:34] LABS: ANION GAP 9 mmol/L (7-16); BUN 14 mg/dL (7-18); CALCIUM 8.7 mg/dL (8.5-10.1); CHLORIDE 106 mmol/L (98-107); CO2 30 mmol/L (21-32); CREATININE 1.3 mg/dL (0.7-1.3); GLUCOSE 114 mg/dL (74-106); MAGNESIUM 2.2 mg/dL (1.8-2.4); POTASSIUM 3.8 mmol/L (3.5-5.1); SODIUM 145 mmol/L (136-145); TROPONIN-I <0.06 ng/mL (<0.06)
--- NOTE | 2019-11-25 04:59 | NUR ---
SLEPT PART OF SHIFT. UP WITH STEADY GAIT. STATES CAN LAY BACK NOW AND NOW HAVE TO SIT STRAIGHT UP TO BREATH. REMAINS WITH SHORTNESS OF AIR WHEN ACTIVE BUT O2 SAT STAYS >90%. WORKING ON GOALS AND PLAN OF CARE FOR NOC. PROGRESSING SLOWLY TOWARDS DISCHARGE GOALS. CONTINUE TO ASSES CLOSELY.
[2019-11-25 07:24] VITALS: BP 97/62
--- NOTE | 2019-11-25 08:18 | EKG ---
[facility] [place] [address] ELECTROCARDIOGRAM REPORT Name: TASH HAYNES Room #: 218-P ADM IN M.R.#: [id number] Admission: 11/24/19 Attend Phys: Xavier Peralta MD Discharge: Date of : 41 Report #: [id number] THIS REPORT FOR: cc: Farhat Richard James A. DO Lundgren, Craig H. 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: GAMALIEL : 1945 Requested By: Xavier Peralta Order Number: [id number] MD: Rene Heredia Measurements Intervals [place] Rate: 75 P: ND: QRS: -17 QRSD: 100 T: 221 QT: 378 QTc: 423 Interpretive Statements Atrial fibrillation Low voltage Anteroseptal infarct, old Nonspecific ST and T wave abnormality Baseline wander in lead(s) I,II,aVR Compared to ECG 11/24/2019 14:05:38 Premature ventricular complexes are now present Electronically Signed On 11-25-2019 8:18:36 CDT by Rene Heredia [email or web address] <ELECTRONICALLY SIGNED> By: Rene Heredia MD, [facility] 11/25/19817 7 7 Rene Heredia MD, [facility] /EPI
--- NOTE | 2019-11-25 09:52 | NUR ---
cm completed initial assessment to discuss d/c planning. pt a&ox4. pt states he lives alone in his home. pt states he has 5/6 stairs to access to entry of home and 5/6 to the bedroo. pt has 0 dmes. pt states he still drives, but his dtr helps runs errands when needed. 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 pt stated he has [facility], "they come to the house about every 6 months to give me physicals." cm to remain avail to assist as needed.
[2019-11-25 12:13] VITALS: BP 118/76
--- NOTE | 2019-11-25 16:09 | NUR ---
ASSESSMENT CHARTED. PT ALERT AND ORIENTED. HAD LOW BP THIS AM. DENIED HAVING PAIN OR DISCOMFORT. DIURESING WELL. PT PROGRESSING WELL TOWARDS DISCHARGE GOAL. NO CONCERNS AT THIS TIME.
[2019-11-25 17:08] VITALS: BP 118/67
[2019-11-25 17:59] LABS: CALCIUM 8.7 mg/dL (8.5-10.1); CREATININE 1.1 mg/dL (0.7-1.3); POTASSIUM 3.8 mmol/L (3.5-5.1)
[2019-11-25 20:14] VITALS: BP 128/63
[2019-11-26] VITALS (7 sets, daily range): BP systolic 83–104; BP diastolic 48–69
--- NOTE | 2019-11-26 03:53 | NUR ---
SLEPT PART OF SHIFT. STATES NOT SLEEPING WELL TONIGHT BUT IS BREATHING EASIER. UP AD AMANDA TO BATHROOM WITH STEADY GAIT. ENCOURAGED TO CONTINUE TO VOID IN URINAL FOR ACCURATE I&O. WORKING ON GOALS AND PLAN OF CARE FOR NOC. PROGRESSING SLOWLY TOWARDS DISCHARGE GOALS. CONTINUE TO ASSES. TELEMETRY SHOWS AFIB WITH MULTIFOCAL PVC'S RATE LOW 32 WHEN SLEEPING.
[2019-11-26 09:40] LABS: CALCIUM 9.1 mg/dL (8.5-10.1); CREATININE 1.1 mg/dL (0.7-1.3); MAGNESIUM 2.4 mg/dL (1.8-2.4); POTASSIUM 3.7 mmol/L (3.5-5.1)
--- NOTE | 2019-11-26 15:09 | NUR ---
SW reviewed chart and spoke with nursing and attending physician. Pt is progressing towards goals for discharge. Pt is on IV lasix and will change to PO lasix tomorrow. Possible discharge home tomorrow. SW met with pt at bedside to discuss discharge plan. Pt denies having any discharge needs when discharged. Pt will have transportation home. SW is following to assist as needed with discharge planning.
[2019-11-27 04:24] VITALS: BP 100/60
--- NOTE | 2019-11-27 04:50 | NUR ---
SLEPT PART OF SHIFT. UP AD AMANDA WITHOUT COMPLAINTS. HOPING TO GO HOME TODAY.WORKING ON GOALS AND PLAN OF CARE FOR NOC. PROGRESSING SLOWLEY TOWARDS DISCHARGE GOALS. CONTINUE TO ASSES CLOSELY.
[2019-11-27] MEDS ORDERED: CARVEDILOL12.5 MG PO (12:07)
[2019-11-27 12:15] VITALS: BP 100/60
--- NOTE | 2019-11-27 12:53 | NUR ---
ASSUMED CARE PT SHIFT CHANGE.ASSESSMENT CHARTED. MEDS GIVEN PER MAY. PT UP AD AMANDA. HR AFIB CONTROLLED, PT HAS BRADYCARDIC EPISODES, CARDIOLOGY AWARE. DENIES SOB, CP. DC ORDERS ACKNOWLEDGED AND IMPLEMENTED. DISCUSSED WITH PT COMMUNICATES UNDERSTANDING. IV REMOVED TELE REMOVED. SCRIPTS CALLED TO PHARMACY. PT LEFT WITH ALL BELONGINGS.
== END 2019-11-27 12:55 | disposition home or self-care (01) | DRG 292 ==
LOC: ER 12:07 → 2N 17:32 → EROBS 17:32 → 2N 19:44
PROVIDERS: Emergency Medicine; Nurse Practitioner; ADMIT Internal Medicine; ATTEND Internal Medicine
DX: I11.0 Hypertensive heart disease with heart failure (principal); I48.21 Permanent atrial fibrillation; I50.23 Acute on chronic systolic (congestive) heart failure; E11.9 Type 2 diabetes mellitus without complications; I42.9 Cardiomyopathy, unspecified; F17.210 Nicotine dependence, cigarettes, uncomplicated; Z66 Do not resuscitate; R63.4 Abnormal weight loss; K59.00 Constipation, unspecified; I35.0 Nonrheumatic aortic (valve) stenosis; I34.0 Nonrheumatic mitral (valve) insufficiency; Z79.01 Long term (current) use of anticoagulants; Z91.14 Patient's other noncompliance with medication regimen; Z71.6 Tobacco abuse counseling; Z79.899 Other long term (current) drug therapy
CPT/HCPCS: 10081

== ENCOUNTER → 2019-12-09 | Outpatient (CLI) | payer OTHER ==
[~2019-12-09] MED LIST changes: +CARVEDILOL12.5 MG PO
== END ==
LOC: SJCVC 10:12
PROVIDERS: ATTEND Internal Medicine
DX: R94.31 Abnormal electrocardiogram [ECG] [EKG] (principal); I48.0 Paroxysmal atrial fibrillation; I42.9 Cardiomyopathy, unspecified; I10 Essential (primary) hypertension; I38 Endocarditis, valve unspecified; I25.2 Old myocardial infarction

== ENCOUNTER → 2020-12-12 | Outpatient (CLI) | payer OTHER | LOC: SJCVC 13:16 | PROVIDERS: ATTEND Internal Medicine | DX: R94.31 Abnormal electrocardiogram [ECG] [EKG] (principal); I49.3 Ventricular premature depolarization; I38 Endocarditis, valve unspecified; I48.21 Permanent atrial fibrillation; I10 Essential (primary) hypertension; E78.5 Hyperlipidemia, unspecified; E11.9 Type 2 diabetes mellitus without complications; Z95.2 Presence of prosthetic heart valve; Z79.82 Long term (current) use of aspirin; Z79.84 Long term (current) use of oral hypoglycemic drugs; Z79.899 Other long term (current) drug therapy; Z87.891 Personal history of nicotine dependence; Z72.89 Other problems related to lifestyle ==